=== PATIENT | female | born 1975 | race Hispanic/Latino ===

== ENCOUNTER 2021-09-25 12:20 | Emergency (ER) | payer SELFPAY ==
[~2021-09-25] VITALS: Ht 154.9 cm; Wt 100.0 kg
[~2021-09-25 12:20] MED LIST: CIPROFLOXACN500 MG PO; LORTAB 7.5 PO; LORTAB5 PO; NAPROSYN500 MG PO; PERCOCET 10/31 COMBO PO; [UNRECOGNIZED DRUG - REMARK]
[2021-09-25] MEDS ORDERED: BACTRIM DS1 TAB PO (13:41)
[2021-09-25 13:58] VITALS: BP 133/75
== END 2021-09-25 14:08 | disposition home or self-care (01) | DRG 603 ==
LOC: ED 12:20
PROC: 0H9FXZZ Drainage of Right Hand Skin, External Approach (ICD-10-PCS; principal; 2021-09-25)
DX: L02.511 Cutaneous abscess of right hand (principal)